=== PATIENT | male | born 1975 | race African-American/Black ===

== ENCOUNTER 2017-01-12 21:18 | Emergency (ER) | payer OTHER ==
[~2017-01-12] VITALS: Ht 195.6 cm; Wt 132.5 kg
[2017-01-13] MEDS ORDERED: PERCOCET 5/31 TABLET PO (01:33)
[2017-01-13] MEDS ORDERED: AUGMENTIN875 MG PO (01:33)
[2017-01-13 02:01] VITALS: BP 137/89
== END 2017-01-13 02:08 | disposition home or self-care (01) ==
LOC: EME → TRA 21:18 → EME 21:18 → TRA 01-13 02:08
PROC: 3E0T3BZ Introduction of Anesthetic Agent into Peripheral Nerves and Plexi, Percutaneous Approach (ICD-10-PCS; principal; 2017-01-13)
DX: S01.511A Laceration without foreign body of lip, initial encounter (principal); S03.2XXA Dislocation of tooth, initial encounter; F17.200 Nicotine dependence, unspecified, uncomplicated; W10.9XXA Fall (on) (from) unspecified stairs and steps, initial encounter
CPT/HCPCS: 70450; 70486; 72125; 99281; 99284

== ENCOUNTER 2017-01-21 18:15 | Emergency (ER) | payer OTHER ==
[~2017-01-21] VITALS: Ht 198.1 cm; Wt 130.0 kg
[~2017-01-21 18:15] MED LIST: AUGMENTIN875 MG PO; PERCOCET 5/31 TABLET PO
[2017-01-21] MEDS ORDERED: MOTRIN800 MG PO (19:59)
[2017-01-21] MEDS ORDERED: NORCO 7.5/321 TABLET PO (19:59)
[2017-01-21 20:07] VITALS: BP 139/95
== END 2017-01-21 20:07 | disposition home or self-care (01) ==
LOC: EME 18:15
DX: S09.93XD Unspecified injury of face, subsequent encounter (principal); W10.9XXD Fall (on) (from) unspecified stairs and steps, subsequent encounter; K02.9 Dental caries, unspecified; F17.200 Nicotine dependence, unspecified, uncomplicated
CPT/HCPCS: 99281; 99283